=== PATIENT | male | born 1945 | race Hispanic/Latino ===

== ENCOUNTER 2019-06-02 11:32 | Day surgery (SDC) | payer MEDICARE, OTHER ==
[~2019-06-02 11:32] MED LIST: APRACLONIDINE 1% OPHTH SOLN DROPERETTE ONE; APRACLONIDINE 1% OPHTH SOLN DROPERETTE OS ONE; PHENYLEPHRINE 10% OPHTH SOLN 5 ML ONE; PHENYLEPHRINE 10% OPHTH SOLN 5 ML OS ONE; POTASSIUM IODIDE/IODINE (LUGOLS) 30 ML TP ONE; TROPICAMIDE 1% OPHTH SOLN 3 ML ONE; TROPICAMIDE 1% OPHTH SOLN 3 ML OS ONE
[2019-06-02 12:18] VITALS: BP 117/67
== END 2019-06-02 11:33 | disposition home or self-care (01) ==
LOC: OR 11:32
PROVIDERS: ATTEND Specialist
DX: H26.492 Other secondary cataract, left eye (principal); I10 Essential (primary) hypertension; M19.90 Unspecified osteoarthritis, unspecified site; Z72.89 Other problems related to lifestyle; Z79.899 Other long term (current) drug therapy; Z87.891 Personal history of nicotine dependence; Z79.82 Long term (current) use of aspirin; Z98.42 Cataract extraction status, left eye; Z95.2 Presence of prosthetic heart valve; Z85.89 Personal history of malignant neoplasm of other organs and systems; Z98.890 Other specified postprocedural states; Z86.2 Personal history of diseases of the blood and blood-forming organs and certain disorders involving the immune mechanism

== ENCOUNTER 2019-07-25 11:10 | Outpatient (CLI) | payer MEDICARE, OTHER ==
--- NOTE | 2019-07-25 12:57 | Ultrasound Report ---
RENAL ULTRASOUND HISTORY: RENAL INSUFFICIENCY COMPARISON: None. TECHNIQUE: Multiple real-time ultrasonographic grayscale images were obtained of the kidneys and urin nabeel bladder. FINDINGS: Right kidney: Cortical thinning and irregularity and mild increased renal echogenicity.. No hydroneph rosis. Kidney measures 10.6 cm. Left kidney: Cortical irregularity with normal renal echogenicity. No hydronephrosis. Renal Kidney me asures 10.1 cm. Urinary bladder: No significant abnormality. Additional findings: Enlarged prostate. IMPRESSION: 1. No hydronephrosis. 2. Bilateral medical renal disease. Signer Name: Neil Chin MD Signed: 07/25/2019 12:53 PM Workstation Name: [id number]
== END 2019-07-25 11:11 | disposition home or self-care (01) ==
LOC: SPVWC 11:10
PROVIDERS: ATTEND Internal Medicine
DX: N40.0 Benign prostatic hyperplasia without lower urinary tract symptoms (principal); N28.89 Other specified disorders of kidney and ureter
CPT/HCPCS: 76770